=== PATIENT | male | born 1970 | race Two or more races ===

== ENCOUNTER 2024-12-26 12:05 | Day surgery (SDC) | payer MEDICAID, SELFPAY ==
[2024-12-25 14:18] VITALS: BMI 32.8
[2024-12-26] VITALS (10 sets, daily range): BP systolic 107–148; BP diastolic 80–95; PULSE 61–75; RESP 12–20; TEMP 36.6–36.7; O2SAT 96–98; BMI 32.4
[2024-12-26] MEDS: RINGERS LACTATED 1000 ML 1,000 ML 125 ML IV (13:46)
[2024-12-26] MEDS: MIDAZOLAM INJ 1 MG/ML VIAL 2 ML (ASD USE ONLY) 2 MG IV (13:51)
[2024-12-26] MEDS: fentaNYL CIT INJ 50 mCg/ML AMP 2ML (ASD USE ONLY) IV (13:57)
== END 2024-12-26 14:55 | disposition home or self-care (01) ==
PROVIDERS: Referring Provider Surgery; Visit Provider Surgery
PROC: 0DBE8ZX Excision of Large Intestine, Via Natural or Artificial Opening Endoscopic, Diagnostic (ICD-10-PCS; CPT 45380; principal; 2024-12-26 13:45)
DX: K57.33 Diverticulitis of large intestine without perforation or abscess with bleeding (principal); E66.01 Morbid (severe) obesity due to excess calories; Z68.32 Body mass index [BMI] 32.0-32.9, adult; Z86.0100 Personal history of colon polyps, unspecified; K59.00 Constipation, unspecified
CPT/HCPCS: 45378; J2250; J3010; J7120